=== PATIENT | female | born 1960 | race Caucasian/White ===

== ENCOUNTER 2016-09-09 19:22 | Emergency (ER) | payer OTHER ==
[2016-09-09] MEDS ORDERED: ZOFRAN 4 MG/2 ML IVP STA (19:41)
[2016-09-09] MEDS ORDERED: DILAUDID 1 MG/ML SYRINGE IVP STA ×2 (19:41→21:02)
[2016-09-09 19:56] VITALS: BP 144/94; TEMP 98.5; BMI 27.1
[2016-09-09] MEDS ORDERED: TORADOL IVP STA (20:12)
[2016-09-09] MEDS ORDERED: SILVADENE CREAM TP STA (20:12)
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
== END 2016-09-09 21:44 | disposition home or self-care (01) ==
LOC: ED 19:22
DX: T23.062A Burn of unspecified degree of back of left hand, initial encounter (principal); X11.8XXA Contact with other hot tap-water, initial encounter
CPT/HCPCS: 96374; 96375; 96376; 99283

== ENCOUNTER 2016-09-29 13:00 | Outpatient (RCR) ==
--- NOTE | 2016-09-04 12:57 | RS.OTEVAL ---
Subjective Date of Note: 09/04/16 Visit #: 1 Date of Evaluation: 09/04/16 Payer Source: MEDICARE Date of Onset/Injury/Change in Status: 06/29/16 Surgery Performed?: Yes Date of Procedure: 08/13/16 Treatment Diagnosis: Synovitis, Tenosynovitis, Radial Tunnel Syndrom, L wrist pain Treatment Side (optional): Left *Precautions: Edema of LUE Prior Level of Function.....Patient was independent with: ADL's, Self Care, Work /Vocation, Caregiving, Ambulation/Mobility, Community Integration/Access History of Condition/Mechanism of Injury: Pt does numerous repetitive motions with LUE. Pt mary's, sews, plays guitar. Pt reported she began hurting 06/09 and had to have something done. Level of Function: Pt was independent with all ADLS and driving her car. Pt now has difficulty with ADLS due to pain and throbbing sensation of LUE. Functional Limitations: Sleep, Self Care, ADL's, Reaching, Pushing, Pulling, Lifting, Carrying Current Complaints/Gains: Pt complains of pain in LUE elbow down to her Left hand and fingers. Patient has throbbing sensation in Left hand. Patient has to get in a particular position to get her pain more manageable. Medical History Medical History Comments:: Patient has fibromyalgia, hypothyroidism, Surgical History Comments:: 2 left elbow surgery, right lateral epicondylitis surgery, Radial tunnel syndrome, Smoking Status: Former smoker Diagnostic Testing/Imaging:: Nerve conduction test, X-ray, Hx Home Medications: Topiramate 50 MG, Cymbalta, Gabapentin, Synthroid, Symvastatin, Requip HCL, Estrace Cream, Meloxicam, Hydrocodone. 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 Pain Assessment - Pain Description Pain Description: Burning, Radiating, Sharp, Throbbing, Acute Pain Location: LUE elbow, wrist and hand Pain Description: sharp, burning, throbbing. Current Pain Intensity: 8 Worst Pain Intensity: 10 Other comments regarding pain:: positions affect her pain in the LUE. Functional Outcome Measures UE Functional Index: 14 - G Codes & Severity Modifier G Codes: Carrying, Moving, and handling G8984 current is 77.5% impaired is CL. G8985 Goal is CI 1-19% impaired. Source of G Code score: Carry, Moving, and Handling Observation - Observation Inspection: Scars from surgery on LUE elbow and Left wrist. Posture: Forward Head Handedness: Right Shoulder ROM: Right WFL's Shoulder Muscle Strength: Right WFL's - Left Shoulder ROM Left Shoulder Flexion: 140 (pain begins at 140) Left Shoulder Extension: 55 Left Shoulder Abduction: 90 Left Shoulder Internal Rotation: 80 Left Shoulder External Rotation: 65 Left Shoulder ROM Limitations: Pain - Left Shoulder Strength Left Shoulder Flexion: 3- Fair- Left Shoulder Extension: 2 Poor Left Shoulder Abduction: 3- Fair- Left Shoulder Adduction: 3- Fair- Left Shoulder External Rotation: 3- Fair- Left Shoulder Internal Rotation: 3- Fair- - Right Shoulder Strength Right Shoulder Flexion: 4+ Good + Right Shoulder Extension: 4+ Good + Right Shoulder Abduction: 4+ Good + Right Shoulder Adduction: 4+ Good + Right Shoulder External Rotation: 4+ Good + Right Shoulder Internal Rotation: 4+ Good + - Special Tests Shoulder Drop Arm Test: Negative Left Elbow ROM: Right WFL's Elbow Muscle Strength: Right WFL's - Left Elbow ROM Left Elbow Extension: -16 Left Elbow Flexion: 135 Left Elbow Supination: 70 Left Elbow Pronation: 80 Left Elbow ROM Limitations: Pain - Left Elbow Strength Left Elbow Extension: 3- Fair- Left Elbow Flexion: 3- Fair- Left Forearm Pronation: 3- Fair- Left Forearm Supination: 3- Fair- Wrist ROM: Right WFL's Wrist Muscle Strength: Right WFL's - Left Wrist/Hand ROM Left Wrist Extension: 40 Left Wrist Flexion: 25 Left Wrist Radial Deviation: 5 Left Wrist Ulnar Deviation: 5 Left Forearm Pronation: 80 Left Forearm Supination: 70 Left Wrist ROM Testing Limitations: Pain Appliquer Zigzag Strength Left Hand Appliquer Zigzag Strength: nt Right Hand Appliquer Zigzag Strength: nt Palpation Palpation Findings: Tenderness, Trigger Point, Muscle Guarding Sensation Right Upper Extremity: Intact/Normal Right Lower Extremity: Intact/Normal Left Upper Extremity: Intact/Normal Left Lower Extremity: Intact/Normal Sensation Description: Pain Interventions - Exercise/Activities Exercise/Activities/Manual Therapy: Manual therapy to the LUE shoulder- subscapularis, scapular release, 1st rib manipulation. HOME EXERCISE PROGRAM: Pt instructed to rest and not mary. - Other Treatment/Services Other Services/Treatments: Contrast Bath Treatment Details: Instructed patient and her to complete contrast bath with LUE 2X day. - Objective Findings Objective Findings:: Limited AROM of LUE as well as increased pain. Limitations with carrying objects, and ADLS. - Charges Total Direct Minutes: 85 minutes Total Treatment Time: 45 Procedures billed for this date of service:: Evaluation, Manual therapy x3 Assessment Assessment: Pt has nerve pain in the LUE at the Left elbow region and left wrist and hand. Patient Education: Education of diagnosis, Body/Joint mechanics, Home Exercise Program, Activity Modification, Education of Plan of Care Rehab Potential: Good Problems/Comments: Pt educated regarding giving her LUE a rest. Short Term Goals Goal #1: Patient pain in LUE to decrease to 4/10. Goal to be met by: 09/18/16 Goal #2: Pt LUE elbow extension to increase to -10 degrees. Goal to be met by: 09/18/16 Goal #3: Left wrist flexion to improve to 0-55 degrees. Goal to be met by: 09/18/16 Goal #4: Left wrist extension to increase to 0-60 Goal to be met by: 09/18/16 Mcfp Goals Goal #1: Pt pain in LUE to decrease to 0-2/10. Goal to be met by: 10/02/16 Goal #2: Pt LUE elbow extension to increase to 0-5 degrees. Goal to be met by: 10/02/16 Goal #3: Pt to be independent with Home program. Goal #4: Pt LUE AROM to be WFL and strength to be 4+/5. Plan - Treatment to be provided Procedures: Therapeutic Exercises, Therapeutic Activity, Neuromuscular Rehab, Manual Therapy, Massage, Patient Education Modalities: Electrical Stimulation, Ultrasound/Phonophoresis, Class IV Laser, Cryotherapy - Treatment Plan Frequency: 3 X week Duration: 4 weeks ORDER # VISITS AND/OR THROUGH DATE: 10/10/16
--- NOTE | 2016-09-08 10:09 | RS.OTDNOTE ---
Subjective Date of Note: 09/05/16 Visit #: 2 Date of Evaluation: 09/04/16 Payer Source: MEDICARE Date of Onset/Injury/Change in Status: 06/29/16 Surgery Performed?: Yes Date of Procedure: 08/13/16 Treatment Diagnosis: Synovitis, Tenosynovitis, Radial Tunnel Syndrom, L wrist pain Treatment Side (optional): Left *Precautions: Edema of LUE Prior Level of Function.....Patient was independent with: ADL's, Self Care, Work /Vocation, Caregiving, Ambulation/Mobility, Community Integration/Access History of Condition/Mechanism of Injury: Pt does numerous repetitive motions with LUE. Pt mary's, sews, plays guitar. Pt reported she began hurting 06/09 and had to have something done. Level of Function: Pt was independent with all ADLS and driving her car. Pt now has difficulty with ADLS due to pain and throbbing sensation of LUE. Functional Limitations: Sleep, Self Care, ADL's, Reaching, Pushing, Pulling, Lifting, Carrying Current Complaints/Gains: Pt gives hx of surgery with Dr Campbell. States she is hypersensitve to all touch including clothes, her pet, and through modalities during therapy. States good compliance with rests yesterday following therapy and performing contrast baths. Pain Assessment - Pain Description Pain Description: Burning, Radiating, Sharp, Throbbing, Acute Pain Location: LUE elbow, wrist and hand Pain Description: sharp, burning, throbbing. Current Pain Intensity: 6 Worst Pain Intensity: 10 Modalities - Treatment Modality: Ultrasound Parameters/Method Applied: 1.5w/cm2 x 10 mins to elbow and wrist area. Patient Position: Sitting - Treatment Modality: Class 4 Laser Parameters/Method Applied: Acute pain protocol to elbow and wrist Patient Position: Sitting - Hot Pack/Cryotherapy Treatment: Cryotherapy (x 10 mins following MT/TE prior to class 4 laser with pt ed to perform again x 4 hrs only) Interventions - Exercise/Activities Exercise/Activities/Manual Therapy: Manual therapy (L) wrist and elbow along with PROM and pt ed for home program. HOME EXERCISE PROGRAM: Pt instructed to rest and not mary. - Objective Findings Objective Findings:: Limited AROM of LUE as well as increased pain. Limitations with carrying objects, and ADLS. - Charges Total Direct Minutes: 40 Total Treatment Time: 55 Procedures billed for this date of service:: CP US MT (0 charge laser) Assessment Patient Education: Education of diagnosis, Body/Joint mechanics, Home Exercise Program, Home Safety, Activity Modification, Education of Plan of Care Patient demonstrates compliance with HEP?: Yes Short Term Goals Goal #1: Patient pain in LUE to decrease to 4/10. Goal to be met by: 09/18/16 Progress towards goal: No Change Goal #2: Pt LUE elbow extension to increase to -10 degrees. Goal to be met by: 09/18/16 Progress towards goal: Progressing Goal #3: Left wrist flexion to improve to 0-55 degrees. Goal to be met by: 09/18/16 Progress towards goal: Progressing Goal #4: Left wrist extension to increase to 0-60 Goal to be met by: 09/18/16 Half-Way Goals Goal #1: Pt pain in LUE to decrease to 0-2/10. Goal to be met by: 10/02/16 Progress towards goal: No Change Goal #2: Pt LUE elbow extension to increase to 0-5 degrees. Goal to be met by: 10/02/16 Progress towards goal: Progressing Goal #3: Pt to be independent with Home program. Progress towards goal: Progressing Goal #4: Pt LUE AROM to be WFL and strength to be 4+/5. Plan PLAN OF CARE EXPIRES ON:: 10/10/16 ORDER # VISITS AND/OR THROUGH DATE: 10/10/16 PLAN: Continue Plan of Care Frequency: 3 X week Duration: 4 weeks
--- NOTE | 2016-09-09 08:23 | RS.OTDNOTE ---
Subjective Date of Note: 09/08/16 Visit #: 3 Date of Evaluation: 09/04/16 Payer Source: MEDICARE Date of Onset/Injury/Change in Status: 06/29/16 Surgery Performed?: Yes Date of Procedure: 08/13/16 Treatment Diagnosis: Synovitis, Tenosynovitis, Radial Tunnel Syndrom, L wrist pain Treatment Side (optional): Left *Precautions: Edema of LUE Prior Level of Function.....Patient was independent with: ADL's, Self Care, Work /Vocation, Caregiving, Ambulation/Mobility, Community Integration/Access History of Condition/Mechanism of Injury: Pt does numerous repetitive motions with LUE. Pt mary's, sews, plays guitar. Pt reported she began hurting 06/09 and had to have something done. Level of Function: Pt was independent with all ADLS and driving her car. Pt now has difficulty with ADLS due to pain and throbbing sensation of LUE. Functional Limitations: Sleep, Self Care, ADL's, Reaching, Pushing, Pulling, Lifting, Carrying Current Complaints/Gains: Pt reports increased pain with "shooting stabs, down her arm". Pain Assessment - Pain Description Pain Description: Burning, Radiating, Sharp, Throbbing, Acute Pain Location: LUE elbow, wrist and hand Pain Description: sharp, burning, throbbing. Current Pain Intensity: 8 Worst Pain Intensity: 8 Modalities - Treatment Modality: Ultrasound Parameters/Method Applied: .05w/cm2 x 7 mins each to wrist and elbow Patient Position: Sitting - Hot Pack/Cryotherapy Treatment: Cryotherapy (CP x 10 mins following tx) Interventions - Exercise/Activities Exercise/Activities/Manual Therapy: Manual therapy (L) wrist and elbow along with PROM and pt ed for home program. HOME EXERCISE PROGRAM: Pt instructed to rest and not mary. - Objective Findings Objective Findings:: Limited AROM of LUE as well as increased pain. Limitations with carrying objects, and ADLS. - Charges Total Direct Minutes: 35 Total Treatment Time: 50 Procedures billed for this date of service:: CP US MT Assessment Patient Education: Education of diagnosis, Body/Joint mechanics, Home Exercise Program, Home Safety, Activity Modification, Education of Plan of Care Patient demonstrates compliance with HEP?: Yes Short Term Goals Goal #1: Patient pain in LUE to decrease to 4/10. Goal to be met by: 09/18/16 Progress towards goal: No Change Goal #2: Pt LUE elbow extension to increase to -10 degrees. Goal to be met by: 09/18/16 Progress towards goal: Progressing Goal #3: Left wrist flexion to improve to 0-55 degrees. Goal to be met by: 09/18/16 Progress towards goal: Progressing Goal #4: Left wrist extension to increase to 0-60 Goal to be met by: 09/18/16 Intermediate Goals Goal #1: Pt pain in LUE to decrease to 0-2/10. Goal to be met by: 10/02/16 Progress towards goal: No Change Goal #2: Pt LUE elbow extension to increase to 0-5 degrees. Goal to be met by: 10/02/16 Progress towards goal: Progressing Goal #3: Pt to be independent with Home program. Progress towards goal: Progressing Goal #4: Pt LUE AROM to be WFL and strength to be 4+/5. Plan PLAN OF CARE EXPIRES ON:: 10/10/16 ORDER # VISITS AND/OR THROUGH DATE: 10/10/16 PLAN: Continue Plan of Care Frequency: 3 X week Duration: 3 weeks
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
--- NOTE | 2016-09-24 13:32 | RS.OTCXNS ---
OT Case Note Date of Scheduled Appointment: 09/24/16 Type: No Show (Second no show this wk)
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
--- NOTE | 2016-09-30 15:33 | RS.OTCXNS ---
OT Case Note Date of Scheduled Appointment: 09/30/16 Type: Cancel (Pt in [place] with spouse at MD appointment)
== END 2016-09-30 ==
PROVIDERS: ATTEND Orthopaedic Surgery
DX: M65.9 Synovitis and tenosynovitis, unspecified (principal); M25.532 Pain in left wrist; G56.32 Lesion of radial nerve, left upper limb

== ENCOUNTER 2016-10-27 13:00 | Outpatient (RCR) ==
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
--- NOTE | 2016-10-03 15:28 | RS.OTDNOTE ---
Subjective Date of Note: 10/03/16 Visit #: 6 Date of Evaluation: 09/04/16 Payer Source: Insurance Date of Onset/Injury/Change in Status: 06/29/16 Surgery Performed?: Yes Treatment Diagnosis: Synovitis, Tenosynovitis, Radial Tunnel Syndrom, L wrist pain Treatment Side (optional): Left *Precautions: Edema of LUE Prior Level of Function.....Patient was independent with: ADL's, Self Care, Work /Vocation, Caregiving, Ambulation/Mobility, Community Integration/Access History of Condition/Mechanism of Injury: Pt does numerous repetitive motions with LUE. Pt mary's, sews, plays guitar. Pt reported she began hurting 06/09 and had to have something done. Level of Function: Pt was independent with all ADLS and driving her car. Pt now has difficulty with ADLS due to pain and throbbing sensation of LUE. Functional Limitations: Sleep, Self Care, ADL's, Reaching, Pushing, Pulling, Lifting, Carrying Current Complaints/Gains: Pt pleased with progress. Pain Assessment - Pain Description Pain Description: Burning, Aching Pain Location: LUE elbow, wrist and hand Pain Description: sharp, burning, throbbing. Modalities - Treatment Modality: Ultrasound Parameters/Method Applied: 1.5w/cm2 x 10 mins each elbow and wrist. Patient Position: Sitting - Hot Pack/Cryotherapy Treatment: Hot Pack (x 15 mins) Interventions - Exercise/Activities Exercise/Activities/Manual Therapy: Manual therapy (L) wrist(flexion/extension) and elbow(flexion/extension) along with PROM and pt ed for home program. Yellow /red digi-flex ex, elbow prolonged/static stretch and yellow t-putty ex performed. Pt ed on prolonged wrist and elbow progressive streching program. US to dorsal left hand. HOME EXERCISE PROGRAM: Pt instructed to rest and not mary. Wear splint at night for LUE wrist to keep in extension. Ice Left wrist to keep pain down. - Objective Findings Objective Findings:: PROM-AROM increasing - Charges Total Direct Minutes: 45 Total Treatment Time: 60 Procedures billed for this date of service:: HP US EX MT Assessment Patient Education: Education of diagnosis, Body/Joint mechanics, Home Exercise Program, Home Safety, Activity Modification, Education of Plan of Care Patient demonstrates compliance with HEP?: Yes Short Term Goals Goal #1: Patient pain in LUE to decrease to 2/10. Goal to be met by: 10/15/16 Progress towards goal: Partially Met Goal #2: Pt to increase mass air quality manager to 30#. Goal to be met by: 10/15/16 Progress towards goal: Progressing Goal #3: Left wrist flexion to improve to 0-55 degrees. Goal to be met by: 10/15/16 Progress towards goal: Progressing Goal #4: Left wrist extension to increase to 0-60 Goal to be met by: 10/15/16 Progress towards goal: Progressing Health And Safety Specialist Goals Goal #1: Pt pain in LUE to decrease to 0/10. Goal to be met by: 11/04/16 Progress towards goal: Progressing Goal #2: Pt to increase mass air quality manager to 50# Goal to be met by: 11/04/16 Progress towards goal: Progressing Goal #3: Pt to be independent with Home program. Goal to be met by: 11/04/16 Progress towards goal: Progressing Goal #4: Pt LUE AROM to be WFL and strength to be 4+/5. Goal to be met by: 11/04/16 Plan PLAN OF CARE EXPIRES ON:: 11/04/16 ORDER # VISITS AND/OR THROUGH DATE: 11/04/16 PLAN: Progress Exercises Frequency: 3 X week Duration: 4 weeks
--- NOTE | 2016-10-08 16:42 | RS.OTDNOTE ---
Subjective Date of Note: 10/08/16 Visit #: 8 Date of Evaluation: 09/04/16 Payer Source: Insurance Date of Onset/Injury/Change in Status: 06/29/16 Surgery Performed?: Yes Treatment Diagnosis: Synovitis, Tenosynovitis, Radial Tunnel Syndrom, L wrist pain Treatment Side (optional): Left *Precautions: Edema of LUE Prior Level of Function.....Patient was independent with: ADL's, Self Care, Work /Vocation, Caregiving, Ambulation/Mobility, Community Integration/Access History of Condition/Mechanism of Injury: Pt does numerous repetitive motions with LUE. Pt mary's, sews, plays guitar. Pt reported she began hurting 06/09 and had to have something done. Level of Function: Pt was independent with all ADLS and driving her car. Pt now has difficulty with ADLS due to pain and throbbing sensation of LUE. Functional Limitations: Sleep, Self Care, ADL's, Reaching, Pushing, Pulling, Lifting, Carrying Current Complaints/Gains: Pt complains of aches and weakness of LUE. Pain Assessment - Pain Description Pain Description: Burning, Aching Pain Location: LUE elbow, wrist and hand Pain Description: sharp, burning, throbbing. Current Pain Intensity: 5 Modalities - Treatment Treatment Area: LUE forearm to hand. Patient Position: Sitting - Treatment Patient Position: Sitting - Hot Pack/Cryotherapy Treatment: Hot Pack, Cryotherapy Comments:: to LUE Interventions - Exercise/Activities Exercise/Activities/Manual Therapy: red digi-flex ex, elbow prolonged/static stretch and orange t-putty ex performed. Pt completed mass electronic sensing equipment assembler with 3# x 10 reps, 5# x 10 reps, the rotating of the wire with the LUE. picking up the blue wtd. ball x 5 reps. HOME EXERCISE PROGRAM: Pt instructed to rest and not mary. Wear splint at night for LUE wrist to keep in extension. Ice Left wrist to keep pain down. - Objective Findings Objective Findings:: PROM-AROM increasing - Charges Total Direct Minutes: 60 Total Treatment Time: 60 Procedures billed for this date of service:: HP ,EX x2, CP Assessment Assessment: Pt's average mass electronic sensing equipment assembler is 28# in LUE. Patient Education: Education of diagnosis, Home Exercise Program, Activity Modification, Education of Plan of Care Patient demonstrates compliance with HEP?: Yes Short Term Goals Goal #1: Patient pain in LUE to decrease to 2/10. Goal to be met by: 10/15/16 Progress towards goal: Partially Met Goal #2: Pt to increase mass electronic sensing equipment assembler to 30#. Goal to be met by: 10/15/16 Progress towards goal: Progressing Goal #3: Left wrist flexion to improve to 0-55 degrees. Goal to be met by: 10/15/16 Progress towards goal: Progressing Goal #4: Left wrist extension to increase to 0-60 Goal to be met by: 10/15/16 Progress towards goal: Progressing Hydraulic And Plumbing Installer Goals Goal #1: Pt pain in LUE to decrease to 0/10. Goal to be met by: 11/04/16 Progress towards goal: Progressing Goal #2: Pt to increase mass electronic sensing equipment assembler to 50# Goal to be met by: 11/04/16 Progress towards goal: Progressing Goal #3: Pt to be independent with Home program. Goal to be met by: 11/04/16 Progress towards goal: Progressing Goal #4: Pt LUE AROM to be WFL and strength to be 4+/5. Goal to be met by: 11/04/16 Plan PLAN OF CARE EXPIRES ON:: 11/04/16 ORDER # VISITS AND/OR THROUGH DATE: 11/04/16 PLAN: Continue Plan of Care Frequency: 3 X week Duration: 4 weeks
--- NOTE | 2016-10-09 08:26 | RS.OTDNOTE ---
Subjective Date of Note: 10/06/16 Visit #: 7 Date of Evaluation: 09/04/16 Payer Source: Insurance Date of Onset/Injury/Change in Status: 06/29/16 Surgery Performed?: Yes Treatment Diagnosis: Synovitis, Tenosynovitis, Radial Tunnel Syndrom, L wrist pain Treatment Side (optional): Left *Precautions: Edema of LUE Prior Level of Function.....Patient was independent with: ADL's, Self Care, Work /Vocation, Caregiving, Ambulation/Mobility, Community Integration/Access History of Condition/Mechanism of Injury: Pt does numerous repetitive motions with LUE. Pt mary's, sews, plays guitar. Pt reported she began hurting 06/09 and had to have something done. Level of Function: Pt was independent with all ADLS and driving her car. Pt now has difficulty with ADLS due to pain and throbbing sensation of LUE. Functional Limitations: Sleep, Self Care, ADL's, Reaching, Pushing, Pulling, Lifting, Carrying Current Complaints/Gains: Pt with no new c/o's. Pain Assessment - Pain Description Pain Description: Burning, Aching Pain Location: LUE elbow, wrist and hand Pain Description: sharp, burning, throbbing. Modalities - Treatment Modality: Ultrasound Parameters/Method Applied: 1.5w/cm2 x 10 mins to wrsit and elbow each Patient Position: Sitting - Hot Pack/Cryotherapy Treatment: Hot Pack, Cryotherapy Interventions - Exercise/Activities Exercise/Activities/Manual Therapy: Manual therapy (L) wrist(flexion/extension) and elbow(flexion/extension) along with PROM and pt ed for home program. Yellow /red digi-flex ex, elbow prolonged/static stretch and yellow t-putty ex performed. Pt ed on prolonged wrist and elbow progressive streching program. US to dorsal left wrist HOME EXERCISE PROGRAM: Pt instructed to rest and not mary. Wear splint at night for LUE wrist to keep in extension. Ice Left wrist to keep pain down. - Objective Findings Objective Findings:: PROM-AROM increasing - Charges Total Direct Minutes: 50 Total Treatment Time: 65 Procedures billed for this date of service:: HP US EX MT Assessment Patient Education: Education of diagnosis, Body/Joint mechanics, Home Exercise Program, Home Safety, Activity Modification, Education of Plan of Care Patient demonstrates compliance with HEP?: Yes Short Term Goals Goal #1: Patient pain in LUE to decrease to 2/10. Goal to be met by: 10/15/16 Progress towards goal: Partially Met Goal #2: Pt to increase mass licensed occupational therapist to 30#. Goal to be met by: 10/15/16 Progress towards goal: Progressing Goal #3: Left wrist flexion to improve to 0-55 degrees. Goal to be met by: 10/15/16 Progress towards goal: Progressing Goal #4: Left wrist extension to increase to 0-60 Goal to be met by: 10/15/16 Progress towards goal: Progressing Box Toe Stitcher Goals Goal #1: Pt pain in LUE to decrease to 0/10. Goal to be met by: 11/04/16 Progress towards goal: Progressing Goal #2: Pt to increase mass licensed occupational therapist to 50# Goal to be met by: 11/04/16 Progress towards goal: Progressing Goal #3: Pt to be independent with Home program. Goal to be met by: 11/04/16 Progress towards goal: Progressing Goal #4: Pt LUE AROM to be WFL and strength to be 4+/5. Goal to be met by: 11/04/16 Plan PLAN OF CARE EXPIRES ON:: 11/04/16 ORDER # VISITS AND/OR THROUGH DATE: 11/04/16 PLAN: Continue Plan of Care Frequency: 3 X week Duration: 3 weeks
--- NOTE | 2016-10-10 14:31 | RS.OTDNOTE ---
Subjective Date of Note: 10/10/16 Visit #: 9 Date of Evaluation: 09/04/16 Payer Source: Insurance Date of Onset/Injury/Change in Status: 06/29/16 Surgery Performed?: Yes Treatment Diagnosis: Synovitis, Tenosynovitis, Radial Tunnel Syndrom, L wrist pain Treatment Side (optional): Left *Precautions: Edema of LUE Prior Level of Function.....Patient was independent with: ADL's, Self Care, Work /Vocation, Caregiving, Ambulation/Mobility, Community Integration/Access History of Condition/Mechanism of Injury: Pt does numerous repetitive motions with LUE. Pt mary's, sews, plays guitar. Pt reported she began hurting 06/09 and had to have something done. Level of Function: Pt was independent with all ADLS and driving her car. Pt now has difficulty with ADLS due to pain and throbbing sensation of LUE. Functional Limitations: Sleep, Self Care, ADL's, Reaching, Pushing, Pulling, Lifting, Carrying Current Complaints/Gains: Pt states no US performed on last tx this wk and pain has increased in wrist and elbow. Pain Assessment - Pain Description Pain Description: Burning, Aching Pain Location: LUE elbow, wrist and hand Pain Description: sharp, burning, throbbing. Modalities - Treatment Modality: Ultrasound Parameters/Method Applied: 1.5w/cm2 x 7 mins each to wrist and elbow - Hot Pack/Cryotherapy Treatment: Hot Pack, Cryotherapy Interventions - Exercise/Activities Exercise/Activities/Manual Therapy: Manual therapy (L) wrist(flexion/extension) and elbow(flexion/extension) along with PROM and pt ed for home program. Yellow /red digi-flex ex, elbow prolonged/static stretch and yellow t-putty ex performed. Pt ed on prolonged wrist and elbow progressive streching program. US to dorsal left wrist and elbow. Wrsit roll-up and wire wrist ex performed. HOME EXERCISE PROGRAM: Pt instructed to rest and not mary. Wear splint at night for LUE wrist to keep in extension. Ice Left wrist to keep pain down. - Objective Findings Objective Findings:: PROM-AROM increasing - Charges Total Direct Minutes: 45 Total Treatment Time: 60 Procedures billed for this date of service:: HP US EX2 Assessment Patient Education: Education of diagnosis, Body/Joint mechanics, Home Exercise Program, Home Safety, Activity Modification, Education of Plan of Care Patient demonstrates compliance with HEP?: Yes Short Term Goals Goal #1: Patient pain in LUE to decrease to 2/10. Goal to be met by: 10/15/16 Progress towards goal: Partially Met Goal #2: Pt to increase mass laborer fryer farm to 30#. Goal to be met by: 10/15/16 Progress towards goal: Met Comments: 28# 31# 30# Goal #3: Left wrist flexion to improve to 0-55 degrees. Goal to be met by: 10/15/16 Progress towards goal: Partially Met Goal #4: Left wrist extension to increase to 0-60 Goal to be met by: 10/15/16 Progress towards goal: Progressing Fpc Goals Goal #1: Pt pain in LUE to decrease to 0/10. Goal to be met by: 11/04/16 Progress towards goal: Progressing Goal #2: Pt to increase mass laborer fryer farm to 50# Goal to be met by: 11/04/16 Progress towards goal: Progressing Goal #3: Pt to be independent with Home program. Goal to be met by: 11/04/16 Progress towards goal: Progressing Goal #4: Pt LUE AROM to be WFL and strength to be 4+/5. Goal to be met by: 11/04/16 Plan PLAN OF CARE EXPIRES ON:: 11/04/16 ORDER # VISITS AND/OR THROUGH DATE: 11/04/16 PLAN: Continue Plan of Care Frequency: 3 X week Duration: 2 weeks
--- NOTE | 2016-10-13 13:55 | RS.OTDNOTE ---
Subjective Date of Note: 10/13/16 Visit #: 10 Date of Evaluation: 09/04/16 Payer Source: Insurance Date of Onset/Injury/Change in Status: 06/29/16 Surgery Performed?: Yes Treatment Diagnosis: Synovitis, Tenosynovitis, Radial Tunnel Syndrom, L wrist pain Treatment Side (optional): Left *Precautions: Edema of LUE Prior Level of Function.....Patient was independent with: ADL's, Self Care, Work /Vocation, Caregiving, Ambulation/Mobility, Community Integration/Access History of Condition/Mechanism of Injury: Pt does numerous repetitive motions with LUE. Pt mary's, sews, plays guitar. Pt reported she began hurting 06/09 and had to have something done. Level of Function: Pt was independent with all ADLS and driving her car. Pt now has difficulty with ADLS due to pain and throbbing sensation of LUE. Functional Limitations: Sleep, Self Care, ADL's, Reaching, Pushing, Pulling, Lifting, Carrying Current Complaints/Gains: Pt states she was able to open 2 jars yesterday while cooking. States pain in anterior/posterior area of UE while driving. States overall improvement with fx use and strength per UE fx scale. Pain Assessment - Pain Description Pain Description: Burning, Aching Pain Location: LUE elbow, wrist and hand Pain Description: sharp, burning, throbbing. Current Pain Intensity: 5 Worst Pain Intensity: 5 Modalities - Hot Pack/Cryotherapy Treatment: Hot Pack, Cryotherapy Interventions - Exercise/Activities Exercise/Activities/Manual Therapy: Manual therapy (L) wrist(flexion/extension) and elbow(flexion/extension) along with PROM and pt ed for home program. Red/ green digi-flex/pins/and t-putty ex. elbow prolonged/static stretch. Pt ed on prolonged wrist and elbow progressive streching program and performed wrist flexion/extension with 3# hand weight and wrist roll up ex with 11/2# weight x 2 each. HOME EXERCISE PROGRAM: Pt instructed to rest and not mary. Wear splint at night for LUE wrist to keep in extension. Ice Left wrist to keep pain down. - Objective Findings Objective Findings:: PROM-AROM increasing - Charges Total Direct Minutes: 40 Total Treatment Time: 65 Procedures billed for this date of service:: HP/CP EX2 Assessment Patient Education: Education of diagnosis, Body/Joint mechanics, Home Exercise Program, Home Safety, Activity Modification, Education of Plan of Care Patient demonstrates compliance with HEP?: Yes Short Term Goals Goal #1: Patient pain in LUE to decrease to 2/10. Goal to be met by: 10/15/16 Progress towards goal: Partially Met Goal #2: Pt to increase mass adult basic education instructor to 30#. Goal to be met by: 10/15/16 Progress towards goal: Met Goal #3: Left wrist flexion to improve to 0-55 degrees. Goal to be met by: 10/15/16 Progress towards goal: Met Goal #4: Left wrist extension to increase to 0-60 Goal to be met by: 10/15/16 Progress towards goal: Progressing Privacy Compliance Manager Goals Goal #1: Pt pain in LUE to decrease to 0/10. Goal to be met by: 11/04/16 Progress towards goal: Progressing Goal #2: Pt to increase mass adult basic education instructor to 50# Goal to be met by: 11/04/16 Progress towards goal: Progressing Goal #3: Pt to be independent with Home program. Goal to be met by: 11/04/16 Progress towards goal: Partially Met Goal #4: Pt LUE AROM to be WFL and strength to be 4+/5. Goal to be met by: 11/04/16 Plan PLAN OF CARE EXPIRES ON:: 11/04/16 ORDER # VISITS AND/OR THROUGH DATE: 11/04/16 PLAN: Continue Plan of Care Frequency: 3 X week Duration: 1 week
--- NOTE | 2016-10-17 08:16 | RS.OTDNOTE ---
Subjective Date of Note: 10/16/16 Visit #: 11 Date of Evaluation: 09/04/16 Payer Source: Insurance Date of Onset/Injury/Change in Status: 06/29/16 Surgery Performed?: Yes Treatment Diagnosis: Synovitis, Tenosynovitis, Radial Tunnel Syndrom, L wrist pain Treatment Side (optional): Left *Precautions: Edema of LUE Prior Level of Function.....Patient was independent with: ADL's, Self Care, Work /Vocation, Caregiving, Ambulation/Mobility, Community Integration/Access History of Condition/Mechanism of Injury: Pt does numerous repetitive motions with LUE. Pt mary's, sews, plays guitar. Pt reported she began hurting 06/09 and had to have something done. Level of Function: Pt was independent with all ADLS and driving her car. Pt now has difficulty with ADLS due to pain and throbbing sensation of LUE. Functional Limitations: Sleep, Self Care, ADL's, Reaching, Pushing, Pulling, Lifting, Carrying Current Complaints/Gains: Pt states increased c/o wrist pain that has been worsening over the past few days. States she has been playing guitar and min amout of crocheting. States applying CP has always helped until now and that HP helps more now. Pain Assessment - Pain Description Pain Description: Burning, Aching Pain Location: LUE elbow, wrist and hand Pain Description: sharp, burning, throbbing. Modalities - Treatment Modality: Ultrasound Parameters/Method Applied: 1.5w/cm2 x 10 mins to dorsal wrist Treatment Area: wrsit Patient Position: Sitting Interventions - Exercise/Activities Exercise/Activities/Manual Therapy: Wrist ex performed along with min amount of TE with light weight resistence. Pt ed on HEP and donning wrist cock up splint for night use. HOME EXERCISE PROGRAM: Pt instructed to rest and not mary. Wear splint at night for LUE wrist to keep in extension. Ice Left wrist to keep pain down. - Other Treatment/Services Other Services/Treatments: Paraffin - Objective Findings Objective Findings:: PROM-AROM increasing - Charges Total Direct Minutes: 45 Total Treatment Time: 45 Procedures billed for this date of service:: Paraffin us ex Assessment Patient Education: Education of diagnosis, Body/Joint mechanics, Home Exercise Program, Home Safety, Activity Modification, Education of Plan of Care Patient demonstrates compliance with HEP?: Yes Short Term Goals Goal #1: Patient pain in LUE to decrease to 2/10. Goal to be met by: 10/15/16 Progress towards goal: Partially Met Goal #2: Pt to increase mass laborer laboratory to 30#. Goal to be met by: 10/15/16 Progress towards goal: Met Goal #3: Left wrist flexion to improve to 0-55 degrees. Goal to be met by: 10/15/16 Progress towards goal: Met Goal #4: Left wrist extension to increase to 0-60 Goal to be met by: 10/15/16 Progress towards goal: Progressing Library Clerk Talking Books Goals Goal #1: Pt pain in LUE to decrease to 0/10. Goal to be met by: 11/04/16 Progress towards goal: Progressing Goal #2: Pt to increase mass laborer laboratory to 50# Goal to be met by: 11/04/16 Progress towards goal: Progressing Goal #3: Pt to be independent with Home program. Goal to be met by: 11/04/16 Progress towards goal: Partially Met Goal #4: Pt LUE AROM to be WFL and strength to be 4+/5. Goal to be met by: 11/04/16 Plan PLAN OF CARE EXPIRES ON:: 11/04/16 ORDER # VISITS AND/OR THROUGH DATE: 11/04/16 PLAN: Continue Plan of Care Frequency: 1 X week Duration: 1 week
--- NOTE | 2016-11-06 08:47 | RS.OTPN ---
Subjective Date of Note: 11/10/16 Visit #: 10 Date of Evaluation: 09/04/16 Payer Source: Insurance Date of Onset/Injury/Change in Status: 06/29/16 Surgery Performed?: Yes Treatment Diagnosis: Synovitis, Tenosynovitis, Radial Tunnel Syndrom, L wrist pain Treatment Side (optional): Left *Precautions: Edema of LUE Prior Level of Function.....Patient was independent with: ADL's, Self Care, Work /Vocation, Caregiving, Ambulation/Mobility, Community Integration/Access History of Condition/Mechanism of Injury: Pt does numerous repetitive motions with LUE. Pt mary's, sews, plays guitar. Pt reported she began hurting 06/09 and had to have something done. Level of Function: Pt was independent with all ADLS and driving her car. Pt now has difficulty with ADLS due to pain and throbbing sensation of LUE. Functional Limitations: Sleep, Self Care, ADL's, Reaching, Pushing, Pulling, Lifting, Carrying Current Complaints/Gains: Pain and weakness of LUE. Pain Assessment - Pain Description Pain Description: Burning, Aching Pain Location: LUE elbow, wrist and hand Pain Description: sharp, burning, throbbing. Current Pain Intensity: 3 Functional Outcome Measures UE Functional Index: 35 - G Codes & Severity Modifier G Codes: CMH Current CJ, Hall is CI Source of G Code score: Carrying, Moving, and Handling. Observation - Observation Posture: Normal Handedness: Right Shoulder ROM: Left WFL's Wrist Muscle Strength: Left WFL's Palpation Palpation Findings: Tenderness Sensation Right Upper Extremity: Intact/Normal Right Lower Extremity: Intact/Normal Left Upper Extremity: Intact/Normal Left Lower Extremity: Intact/Normal Comments: Pt continues with hypersensitivity of dorsal LUE hand. Interventions - Exercise/Activities Exercise/Activities/Manual Therapy: Wrist ex performed along with min amount of TE with light weight resistence. Pt ed on HEP and donning wrist cock up splint for night use. HOME EXERCISE PROGRAM: Pt instructed to rest and not mary. Wear splint at night for LUE wrist to keep in extension. Ice Left wrist to keep pain down. - Objective Findings Objective Findings:: PROM-AROM increasing - Charges Total Direct Minutes: 0 Total Treatment Time: 0 Procedures billed for this date of service:: 0 Assessment Assessment: Patient AROM is WFL. Patient Education: Education of diagnosis, Home Exercise Program, Education of Plan of Care Rehab Potential: Good Short Term Goals Goal #1: Patient pain in LUE to decrease to 2/10. Goal to be met by: 10/15/16 Progress towards goal: Met Goal #2: Pt to increase mass editor & co founder to 30#. Goal to be met by: 10/15/16 Progress towards goal: Met Goal #3: Left wrist flexion to improve to 0-55 degrees. Goal to be met by: 10/15/16 Progress towards goal: Met Goal #4: Left wrist extension to increase to 0-60 Goal to be met by: 10/15/16 Progress towards goal: Progressing Halfway Goals Goal #1: Pt pain in LUE to decrease to 0/10. Goal to be met by: 11/04/16 Progress towards goal: Progressing Goal #2: Pt to increase mass editor & co founder to 50# Goal to be met by: 11/04/16 Progress towards goal: Progressing Goal #3: Pt to be independent with Home program. Goal to be met by: 11/04/16 Progress towards goal: Partially Met Goal #4: Pt LUE AROM to be WFL and strength to be 4+/5. Goal to be met by: 11/04/16 Plan PLAN OF CARE EXPIRES ON:: 11/04/16 ORDER # VISITS AND/OR THROUGH DATE: 11/04/16 PLAN: Continue Plan of Care Frequency: 2 X week Duration: 2 weeks
== END 2016-10-28 ==
PROVIDERS: ATTEND Orthopaedic Surgery
DX: M65.9 Synovitis and tenosynovitis, unspecified (principal); M25.532 Pain in left wrist; G56.32 Lesion of radial nerve, left upper limb

== ENCOUNTER 2016-11-09 19:07 | Emergency (ER) | payer OTHER ==
[2016-11-09] MEDS ORDERED: SODIUM CHLORIDE 1,000 ML IV STA ×2 (19:09)
[2016-11-09] MEDS ORDERED: DILAUDID 1 MG/ML SYRINGE IVP STA (19:10)
[2016-11-09] MEDS ORDERED: ZOFRAN 4 MG/2 ML IVP STA (19:10)
[2016-11-09 19:16] VITALS: BP 131/74; TEMP 99.5; BMI 26.6
[2016-11-09 19:45] LABS: BASOPHILS % (AUTO) 0.3 % (0.0-3.0); EOSINOPHILS # (AUTO) 0.1 K/ul (0.0-0.7); EOSINOPHILS % (AUTO) 0.7 % (0.0-7.0); HEMATOCRIT 44.6 % (37.0-47.0); HEMOGLOBIN 14.8 g/dl (12.0-16.0); IMMATURE GRANULOCYTE % (AUTO) 0.2 % (0.0-5.0); LYMPHOCYTES # (AUTO) 0.7 K/uL (0.60-3.4); LYMPHOCYTES % (AUTO) 7.7 (10.0-50.0); MEAN CORPUSCULAR HGB CONC 33.2 (31.8-35.4); MEAN CORPUSCULAR VOLUME 87.5 fl (81.0-99.0); MONOCYTES # (AUTO) 0.4 K/uL (0.4-2.0); MONOCYTES % (AUTO) 4.3 (0-10); NEUTROPHILS # (AUTO) 7.5 K/ul (2.0-6.9); NEUTROPHILS % (AUTO) 86.8; PLATELET COUNT 224 10^3/uL (140-440)
[2016-11-09 19:46] LABS: BILIRUBIN,URINE Negative (NEGATIVE); KETONES,URINE Negative (NEGATIVE); LEUKOCYTE ESTERASE ,URINE Negative (NEGATIVE); NITRITE,URINE Negative (NEGATIVE); PH,URINE 6.5 (5-9); PROTEIN,URINE Negative (NEGATIVE); URINE, BLOOD Negative (NEGATIVE)
[2016-11-09 19:49] LABS: ADD URINE MICROSCOPIC NO
[2016-11-09 20:02] LABS: FLU INTERNAL QC INTERNAL QC VALID; RAPID FLU A NEGATIVE (NEGATIVE); RAPID FLU B NEGATIVE (NEGATIVE)
[2016-11-09 20:12] LABS: ALANINE AMINOTRANSFERASE 30 U/L (12-78); ALBUMIN 3.7 g/dL (3.4-5.0); ALBUMIN/GLOBULIN RATIO 1.12; ALKALINE PHOSPHATASE 73 U/L (42-98); AMYLASE 27 U/L (25-115); ANION GAP 15.5; ASPARTATE AMINO TRANSFERASE 18 U/L (15-37); BILIRUBIN,TOTAL 0.64 mg/dL (0.00-1.20); BLOOD UREA NITROGEN 14 mg/dL (7-18); BUN/CREATININE RATIO 19.44; CALCIUM 8.8 mg/dL (8.2-10.2); CARBON DIOXIDE 20 mmol/L (21-32); CHLORIDE 108 mmol/L (98-107); CREATINE KINASE 41 U/L; CREATININE 0.72 mg/dL (0.60-1.30); GLUCOSE 113 mg/dL (70-110); POTASSIUM 3.5 mmol/L (3.5-5.10); SODIUM 140 mmol/L (136-145)
[2016-11-09 20:13] LABS: LIPASE 5 U/L (8-78)
[2016-11-09 20:18] LABS: ERYTHROCYTE SEDIMENTATION RATE 18 mm/hr (0-20); ESR INTERNAL QC INTERNAL QC VALID
--- NOTE | 2016-11-09 20:50 | CT ---
Exam: CT scan of the abdomen pelvis without contrast. Date: 11/09/2016. Comparison: 02/07/2014. HISTORY: Multiple episodes of vomiting. TECHNIQUE: Helical scan of the abdomen pelvis was performed without contrast. FINDINGS: Lung bases are clear. Minor multilevel degenerative changes present throughout the lumba r spine. No lytic or blastic lesions are present. The spleen and liver have a uniform attenuation. The gallbladder, stomach, pancreas and adrenal gla nds are normal. The kidneys have a normal morphology. There is redemonstration of a 0.1 cm nonobst ructing calculus in the lower pole left kidney. No retroperitoneal adenopathy is present. Aorta walters s peripheral calcification and does not exceed 3 cm. The small bowel and appendix are normal. The colon, pelvic sidewall and bladder are normal. There is no free pelvic fluid. Hysterectomy has bee n performed. The rectum inguinal regions are normal. Impression: No acute findings in the abdomen or pelvis. Hysterectomy. Scattered ASVD. 0.1-cm nonobstructing calculus in the lower pole left kidney.
--- NOTE | 2016-11-09 21:05 | ED.PDOC ---
General ED Provider: Dr. SMITHA TRINH-ER Chief Complaint: Nausea/Vomiting Stated Complaint: evelyn got vomiting and diarrhea Time Seen by Physician: 19:10 Mode of Arrival: Walk-In Information Source: Patient Exam Limitations: No limitations Primary Care Provider: SMITHA TRINH Nursing and Triage Documentation Reviewed and Agree: Yes GI Complaint Exam - Abdominal Pain Complaint/Exam Onset: Gradual Duration: several hours Symptoms Are: Still present Timing: Constant Initial Severity: Mild Current Severity: Mild Location of Pain: Diffuse Character: Reports: Dull, Aching Aggravating: Reports: None Alleviating: Reports: Vomiting Associated Signs and Symptoms: Reports: Decreased appetite, Nausea, Vomiting. Denies: Diaphoresis, Fever, Cough, Chest pain, Dizziness, Back pain, Constipation, Blood in stool, Dysuria, Urinary frequency, Decreased urine output , Vaginal bleeding, Vaginal discharge, Diarrhea, Sore throat, Decreased activity AAA Risk Factors: Reports: None Patient Rh Status: Unknown Abdominal Findings: Present: None Quality Indicator For Non-Traumatic Chest Pain/Syncope: EKG Performed Review of Systems - Review Of Systems Constitutional: Reports: No symptoms Eyes: Reports: No symptoms Ears, Nose, Mouth, Throat: Reports: No symptoms Respiratory: Reports: No symptoms Cardiac: Reports: No symptoms GI: Reports: Abdominal pain, Diarrhea, Nausea, Vomiting : Reports: No symptoms Musculoskeletal: Reports: No symptoms Skin: Reports: No symptoms Neurological: Reports: No symptoms Endocrine: Reports: No symptoms Hematologic/Lymphatic: Reports: No symptoms All Other Systems: Reviewed and Negative Past Medical History - Past Medical History Previously Healthy: Yes Endocrine: Reports: None Cardiovascular: Reports: None Respiratory: Reports: None Hematological: Reports: None Gastrointestinal: Reports: None Genitourinary: Reports: None Neuro/Psych: Reports: Migraine, Other Musculoskeletal: Reports: None Cancer: Reports: None Last Menstrual Period: PT HAS HAD A HYSTERECTOMY - Surgical History General Surgical History: Reports: None - Family History Family History: Reports: Unknown - Social History Smoking Status: Former smoker Hx Substance Use: No Alcohol Screening: None Lives: With family - Immunizations Tetanus Shot up to Date: Yes (UNKNOWN) Physical Exam - Physical Exam Appearance: Well-appearing, No pain distress, Well-nourished Pain Distress: Mild Eyes: HAZEL, EOMI, Conjunctiva clear ENT: Ears normal, Nose normal, Oropharynx normal Neck: Supple Respiratory: Airway patent Cardiovascular: RRR GI/: Soft Musculoskeletal: Normal strength, ROM intact, No edema, No calf tenderness Skin: Warm, Dry, Normal color Neurological: Sensation intact, Motor intact, Reflexes intact, Cranial nerves intact, Alert, Oriented Psychiatric: Affect appropriate, Mood appropriate Interpretation - Radiology Interpretation Radiology Interpretation By: Radiologist Radiology Results: Negative Exam Interpreted: CT Scan - EKG Interpretation Time of EKG #1: 21:04 Rate: Tachy Rhythm: Sinus Ectopy: None Randolph: NL ST Segment: Normal Re-Evaluation - Re-Evaluation Time of Re-Evaluation: 21:04 Status: Improved (no nausea or abd painor diarrhea) Vital Signs Stable: Yes Pain Level: 0 Appearance: NAD Lungs: Clear Skin: Warm and Dry Neuro: Alert and Oriented X3 CV: RRR Critical Care Note - Critical Care Note Total Time (mins): 0 Course - Course Hematology/Chemistry: 11/09/16 19:40 11/09/16 19:40 Orders, Labs, Meds: Lab Review 11/09/16 19:40 WBC 8.60 RBC 5.10 Hgb 14.8 Hct 44.6 MCV 87.5 MCH 29.0 MCHC 33.2 RDW Coeff of Katherine 12.9 Plt Count 224 Immature Gran % (Auto) 0.2 Neut % (Auto) 86.8 Lymph % (Auto) 7.7 L Hayes % (Auto) 4.3 Eos % (Auto) 0.7 Baso % (Auto) 0.3 Immature Gran # (Auto) 0.0 Neut # 7.5 H Lymph # 0.7 Hayes # 0.4 Eos # 0.1 Baso # 0.0 ESR 18 Sodium 140 Potassium 3.5 Chloride 108 H Carbon Dioxide 20 L Anion Gap 15.5 BUN 14 Creatinine 0.72 Estimated GFR (MDRD) 84.00 BUN/Creatinine Ratio 19.44 Glucose 113 H Calcium 8.8 Total Bilirubin 0.64 AST 18 ALT 30 Alkaline Phosphatase 73 Total Creatine Kinase 41 Troponin I < 0.0100 Total Protein 7.0 Albumin 3.7 Globulin 3.3 Albumin/Globulin Ratio 1.12 Amylase 27 Lipase 5 L Urine Color Yellow Urine Clarity Clear Urine pH 6.5 Ur Specific Java 1.015 Urine Protein Negative Urine Glucose (UA) Negative Urine Ketones Negative Urine Blood Negative Urine Nitrite Negative Urine Bilirubin Negative Urine Urobilinogen 1.0 Ur Leukocyte Esterase Negative Influenza A (Rapid) Negative Influenza B (Rapid) Negative Orders Category Date Time Status EKG-(ED ONLY) Stat CARDIO 11/09/16 19:08 Ordered Impregnating Helper [ED FICTION WRITER APPLIED] .ONCE EMERGENCY 11/09/16 19:49 Active IV [ED IV/MEDIPORT/POWERPORT] .ONCE EMERGENCY 11/09/16 19:09 Active AMYLASE Stat LAB 11/09/16 19:40 Completed CBC W/ AUTO DIFF Stat LAB 11/09/16 19:40 Completed COMPREHENSIVE METABOLIC PANEL Stat LAB 11/09/16 19:40 Completed CREATINE KINASE Stat LAB 11/09/16 19:40 Completed ESR Stat LAB 11/09/16 19:40 Completed LIPASE Stat LAB 11/09/16 19:40 Completed MOLECULAR GROUP A STREP Stat LAB 11/09/16 19:20 Results RAPID FLU A/B Stat LAB 11/09/16 19:40 Completed STREP SCREEN Stat LAB 11/09/16 19:20 Results TROPONIN I Stat LAB 11/09/16 19:40 Completed URINALYSIS C & S IF INDICATED Stat LAB 11/09/16 19:40 Completed 0.9 % Sodium Chloride [Saline Flush] MEDS 11/09/16 19:09 Ordered 1 syr IVF PRN PRN Hydromorphone HCl [Dilaudid 1 mg/ml Syringe] MEDS 11/09/16 19:10 Discontinued 1 mg IVP ONCE STA Ondansetron HCl/Pf [Zofran 4 mg/2 ml] MEDS 11/09/16 19:10 Discontinued 8 mg IVP ONCE STA Sodium Chloride 0.9% [Sodium Chloride] 1,000 ml MEDS 11/09/16 19:09 Discontinued IV BOLUS Sodium Chloride 0.9% [Sodium Chloride] 1,000 ml MEDS 11/09/16 19:[address] ABDOMEN/PELVIS WO CONTRAST Stat RADS 11/09/16 19:10 Completed Medications Generic Name Dose Route Start Last Admin Trade Name Freq PRN Reason Stop Dose Admin Sodium Chloride 1 syr 11/09/16 19:09 11/09/16 19:58 Saline Flush IVF 1 syr PRN PRN Administration To flush IV Discontinued Medications Generic Name Dose Route Start Last Admin Trade Name Freq PRN Reason Stop Dose Admin Hydromorphone HCl 1 mg 11/09/16 19:10 11/09/16 19:50 Dilaudid 1 Mg/Ml Syringe IVP 11/09/16 19:11 1 mg ONCE STA Administration Sodium Chloride 1,000 mls @ 1,000 mls/hr 11/09/16 19:09 11/09/16 19:42 Sodium Chloride IV 11/09/16 20:08 1,000 mls/hr BOLUS STA Administration Sodium Chloride 1,000 mls @ 1,000 mls/hr 11/09/16 19:09 11/09/16 19:56 Sodium Chloride IV 11/09/16 20:08 1,000 mls/hr BOLUS STA Administration Ondansetron HCl 8 mg 11/09/16 19:10 11/09/16 19:44 Zofran 4 Mg/2 Ml IVP 11/09/16 19:11 8 mg ONCE STA Administration Vital Signs: Temp Pulse Resp BP Pulse Ox 11/09/16 19:09 99.5 F 131 H 24 131/74 97 Departure - Departure Time of Disposition: 21:05 Disposition: HOME SELF-CARE Discharge Problem: Enteritis Instructions: Enteritis (ED) Condition: Good Pt referred to PMD for follow-up: Yes Additional Instructions: zofran 4mg q 4hrs prn #4--clear liquds--recheck in 36hs if not improving Allergies/Adverse Reactions: Allergies butorphanol tartrate [From Stadol] Adverse Reaction (Verified 11/09/16 19:16) codeine Adverse Reaction (Verified 11/09/16 19:16) prochlorperazine edisylate [From Compazine] Adverse Reaction (Verified 11/09/16 19:16) prochlorperazine maleate [From Compazine] Adverse Reaction (Verified 11/09/16 19 :16) Home Medications: Ambulatory Orders Ropinirole HCl [Requip] 2 mg PO BEDTIME 02/07/14 Topiramate [Topamax] 75 mg PO BID 02/07/14 Duloxetine HCl [Cymbalta] 90 mg PO DAILY 02/25/16 Gabapentin 300 mg PO TID 02/25/16 Levothyroxine Sodium [Synthroid] 50 mcg PO DAILY 02/25/16 Estradiol [Estrace] 42.5 gm VG 2 TIMES PER WEEK 09/09/16 Hydrocodone/Acetaminophen [Hydrocodon-Acetaminoph 7.5-325] 1 tab PO TID PRN 06/16 Lorazepam 0.5 mg PO DIRECTED PRN 09/09/16 Meloxicam 15 mg PO DAILY 09/09/16 Oxycodone-Acetaminophe 7.5-325 [Percocet 7.5-325] 1 tab PO Q6H PRN #25 tablet Simvastatin 20 mg PO DAILY 09/09/16 Disposition Discussed With: Patient, Family
== END 2016-11-09 21:16 | disposition home or self-care (01) ==
LOC: ED 19:07
DX: K52.9 Noninfective gastroenteritis and colitis, unspecified (principal)
CPT/HCPCS: 36415; 80053; 81001; 82150; 82550; 83690; 84484; 85025; 85651; 87651; 87804; 87880; 93005; 93010; 96361; 96374; 96375; 99283

== ENCOUNTER 2016-12-25 09:47 | Outpatient (CLI) ==
--- NOTE | 2016-12-25 10:36 | DI ---
EXAM: The paranasal sinuses. [place] HISTORY: Sinus pain COMPARISON: None FINDINGS: Paranasal sinuses grossly clear without fluid level. No fracture identified. No focal s oft tissue abnormality. IMPERSSION: Paranasal sinuses grossly clear.
== END 2016-12-25 09:48 | disposition home or self-care (01) ==
LOC: RAD 09:47
PROVIDERS: ATTEND Family Medicine
DX: J32.9 Chronic sinusitis, unspecified (principal)

== ENCOUNTER 2017-01-03 20:27 | Emergency (ER) ==
[2017-01-03 20:34] VITALS: BP 130/75; TEMP 98.5; BMI 26.2
--- NOTE | 2017-01-03 20:41 | ED.PDOC ---
General ED Provider: Dr. JOSE MORSE Chief Complaint: Eye Problem Stated Complaint: Patient is a 56 year old female who comes to ER with c/o left eye infection.She states that it has been matting with yellow drainage, itching, and painful she has now notice it spreading to right eye. Time Seen by Physician: 20:39 Mode of Arrival: Walk-In Information Source: Patient Exam Limitations: No limitations Primary Care Provider: SMITHA TRINH Nursing and Triage Documentation Reviewed and Agree: Yes EENT Complaint Exam - Eye Complaint/Exam Onset/Duration: 2 days Symptoms Are: Still present Timing: Constant Initial Severity: Moderate Location: Bilateral Character: Reports: Foreign body sensation Aggravating: Reports: Light Alleviating: Reports: Eye drops Associated Signs and Symptoms: Reports: Photophobia, Clear drainage Related History: Reports: Environmental. Denies: Similar episode, Foreign body , Trauma, Glaucoma Eye Surgical History: Reports: None Penetrating Injury Risk Factors: None Globe Rupture Risk Factors: None Acute Glaucoma Risk Factors: None Optic Artery Occlusion Risk Factors: None Visual Field: Normal Extraocular Movement: Normal Orbit Findings: Normal Globe Findings: Intact Lid Findings: Normal Conjunctival Findings: Red (very mild ) Corneal Findings: Clear Slit Lamp Used: No Differential Diagnoses: Conjunctivitis Review of Systems - Review Of Systems Constitutional: Reports: No symptoms Eyes: Reports: Drainage, Pain Ears, Nose, Mouth, Throat: Reports: No symptoms Respiratory: Reports: No symptoms Cardiac: Reports: No symptoms GI: Reports: No symptoms : Reports: No symptoms Musculoskeletal: Reports: No symptoms Skin: Reports: No symptoms Neurological: Reports: No symptoms Endocrine: Reports: No symptoms Hematologic/Lymphatic: Reports: No symptoms All Other Systems: Reviewed and Negative Past Medical History - Past Medical History Previously Healthy: Yes Endocrine: Reports: Hypothyroid, Dyslipidemia Cardiovascular: Reports: None Respiratory: Reports: None Hematological: Reports: None Gastrointestinal: Reports: GERD Genitourinary: Reports: None Neuro/Psych: Reports: Migraine, Other Musculoskeletal: Reports: None Cancer: Reports: None Last Menstrual Period: 1994 Other Pertinent Past Medical History: Fibromyalgia - Surgical History General Surgical History: Reports: Hysterectomy (1994), , Orthopedic ( left forearm surgery, right elbow surgery ), Back Surgery (L5 S1 disk removal. ) - Family History Family History: Reports: Unknown - Social History Smoking Status: Former smoker Hx Substance Use: No Alcohol Screening: None - Immunizations Tetanus Shot up to Date: No (unsure) Physical Exam - Physical Exam Appearance: Ill-appearing Ill-appearing: Mild Pain Distress: Mild Eyes: Conjunctiva inflammed ENT: Oropharynx normal Neck: Supple Respiratory: Respirations nonlabored GI/: Nontender, No masses Musculoskeletal: Normal strength, ROM intact, No edema, No calf tenderness Skin: Warm, Dry, Normal color Neurological: Motor intact, Alert, Oriented Psychiatric: Anxious Critical Care Note - Critical Care Note Total Time (mins): 0 Course - Course Vital Signs: Temp Pulse Resp BP Pulse Ox 01/03/17 20:28 98.5 F 92 H 20 130/75 96 Departure - Departure Time of Disposition: 21:27 Disposition: HOME SELF-CARE Discharge Problem: Chemical conjunctivitis of both eyes Instructions: Conjunctivitis (ED) Condition: Fair Pt referred to PMD for follow-up: Yes Additional Instructions: use eye drops to both eyes tree times at day. Follow up with your PCP in 3 days Allergies/Adverse Reactions: Allergies butorphanol tartrate [From Stadol] Adverse Reaction (Verified 01/03/17 20:34) codeine Adverse Reaction (Verified 01/03/17 20:34) prochlorperazine edisylate [From Compazine] Adverse Reaction (Verified 01/03/17 20:34) prochlorperazine maleate [From Compazine] Adverse Reaction (Verified 01/03/17 20 :34) Home Medications: Ambulatory Orders Ropinirole HCl [Requip] 2 mg PO BEDTIME 02/07/14 Topiramate [Topamax] 75 mg PO BID 02/07/14 Duloxetine HCl [Cymbalta] 90 mg PO DAILY 02/25/16 Gabapentin 300 mg PO TID 02/25/16 Levothyroxine Sodium [Synthroid] 50 mcg PO DAILY 02/25/16 Estradiol [Estrace] 42.5 gm VG 2 TIMES PER WEEK 09/09/16 Lorazepam 0.5 mg PO DIRECTED PRN 09/09/16 Oxycodone-Acetaminophe 7.5-325 [Percocet 7.5-325] 1 tab PO Q6H PRN #25 tablet Simvastatin 20 mg PO DAILY 09/09/16 Diclofenac Sodium [Voltaren 1% Gel] 4 gm TP QID 01/04/17 Diphenhydramine HCl [Benadryl] 25 mg PO Q8H PRN 01/04/17 Omeprazole [Prilosec] 20 mg PO QDAC 01/04/17 Promethazine HCl 25 mg PO DAILY PRN 01/04/17 Sumatriptan Succinate [Imitrex] 6 mg SQ DAILY PRN 01/04/17 Disposition Discussed With: Patient, Family
[2017-01-03] MEDS: EYE-STREAM OP STA (21:18)
[2017-01-03] MEDS: GENTAK OPTH SOL OP STA (21:42)
== END 2017-01-03 21:42 | disposition home or self-care (01) ==
LOC: ED 20:27
DX: H10.213 Acute toxic conjunctivitis, bilateral (principal)
CPT/HCPCS: 99282

== ENCOUNTER 2017-02-04 16:13 | Emergency (ER) ==
[2017-02-04 16:38] VITALS: BP 165/83; TEMP 97.8; BMI 27.1
== END 2017-02-04 16:36 | disposition left against medical advice (07) ==
LOC: ED 16:13
DX: T50.901A Poisoning by unspecified drugs, medicaments and biological substances, accidental (unintentional), initial encounter (principal); R52 Pain, unspecified; R11.0 Nausea; R47.02 Dysphasia

== ENCOUNTER 2017-05-21 18:39 | Emergency (ER) ==
[2017-05-21 18:48] VITALS: BP 149/82; TEMP 98.5; BMI 26.1
[2017-05-21] MEDS ORDERED: MOTRIN PO STA (19:29)
[2017-05-21] MEDS ORDERED: KEFLEX PO STA (19:29)
--- NOTE | 2017-05-21 20:11 | ED.PDOC ---
General ED Provider: Dr. JOSE MORSE Chief Complaint: Wound Check Stated Complaint: Patient is a 56 year old female who was admitted to [facility] on may 15 with iv started to rt forearm. It was used on may 17 for dobutamine stress test and it was flushed later on afternoon shift. Patiet states it was very painful at that time. Now the area is reddened,warm and tender to touch. Time Seen by Physician: 19:25 Mode of Arrival: Walk-In Information Source: Patient Exam Limitations: No limitations Primary Care Provider: SMITHA TRINH Nursing and Triage Documentation Reviewed and Agree: Yes Review of Systems - Review Of Systems Constitutional: Reports: No symptoms Eyes: Reports: No symptoms Ears, Nose, Mouth, Throat: Reports: No symptoms Respiratory: Reports: No symptoms Cardiac: Reports: No symptoms GI: Reports: No symptoms : Reports: No symptoms Musculoskeletal: Reports: No symptoms Skin: Reports: Rash Neurological: Reports: No symptoms Endocrine: Reports: No symptoms Hematologic/Lymphatic: Reports: No symptoms All Other Systems: Reviewed and Negative Past Medical History - Past Medical History Previously Healthy: Yes Endocrine: Reports: Hypothyroid, Dyslipidemia Cardiovascular: Reports: None Respiratory: Reports: None Hematological: Reports: None Gastrointestinal: Reports: GERD Genitourinary: Reports: None Neuro/Psych: Reports: Migraine, Other Musculoskeletal: Reports: None Cancer: Reports: None Last Menstrual Period: hysterectomy Other Pertinent Past Medical History: Fibromyalgia - Surgical History General Surgical History: Reports: Hysterectomy (1994), , Orthopedic ( left forearm surgery, right elbow surgery ), Back Surgery (L5 S1 disk removal. ) - Family History Family History: Reports: Unknown - Social History Smoking Status: Former smoker Hx Substance Use: No Alcohol Screening: None Physical Exam - Physical Exam Appearance: Well-appearing, No pain distress, Well-nourished Eyes: HAZEL, EOMI, Conjunctiva clear ENT: Ears normal, Nose normal, Oropharynx normal Respiratory: Airway patent, Breath sounds clear, Breath sounds equal, Respirations nonlabored Cardiovascular: RRR, Pulses normal, No rub, No murmur GI/: Soft, Nontender, No masses, Bowel sounds normal, No Organomegaly Musculoskeletal: Normal strength, ROM intact, No edema, No calf tenderness Skin: Warm, Dry, Normal color Neurological: Sensation intact, Motor intact, Reflexes intact, Cranial nerves intact, Alert, Oriented Psychiatric: Affect appropriate, Mood appropriate Critical Care Note - Critical Care Note Total Time (mins): 0 Course - Course Orders, Labs, Meds: Orders Category Date Time Status Cephalexin [Keflex] MEDS 05/21/17 19:29 Discontinued 500 mg PO ONCE STA Ibuprofen [Motrin] MEDS 05/21/17 19:29 Discontinued 800 mg PO ONCE STA Medications Discontinued Medications Generic Name Dose Route Start Last Admin Trade Name Freq PRN Reason Stop Dose Admin Cephalexin 500 mg 05/21/17 19:29 05/21/17 19:36 Keflex PO 05/21/17 19:30 500 mg ONCE STA Administration Ibuprofen 800 mg 05/21/17 19:29 05/21/17 19:36 Motrin PO 05/21/17 19:30 800 mg ONCE STA Administration Vital Signs: Temp Pulse Resp BP Pulse Ox 05/21/17 18:40 98.5 F 103 H 20 149/82 H 95 Departure - Departure Time of Disposition: 20:08 Disposition: HOME SELF-CARE Discharge Problem: Thrombophlebitis following injection or infusion Qualifiers: Encounter type: initial encounter Qualified Code(s): T81.72XA - Complication of vein following a procedure, not elsewhere classified, initial encounter Instructions: Superficial Thrombophlebitis (ED) Condition: Good Pt referred to PMD for follow-up: Yes Additional Instructions: Take medications as prescribed. Follow up with PCP use cold compress for relief of symptoms Prescriptions: Cephalexin [Keflex] 500 mg PO Q8HR #30 capsule Ibuprofen [Motrin] 600 mg PO Q6H PRN #30 tablet PRN Reason: Analgesia Allergies/Adverse Reactions: Allergies butorphanol tartrate [From Stadol] Adverse Reaction (Verified 05/21/17 18:49) codeine Adverse Reaction (Verified 05/21/17 18:49) prochlorperazine edisylate [From Compazine] Adverse Reaction (Verified 05/21/17 18:49) prochlorperazine maleate [From Compazine] Adverse Reaction (Verified 05/21/17 18 :49) Home Medications: Ambulatory Orders Ropinirole HCl [Requip] 2 mg PO BEDTIME 02/07/14 Topiramate [Topamax] 75 mg PO BID 02/07/14 Duloxetine HCl [Cymbalta] 90 mg PO DAILY 02/25/16 Gabapentin 400 mg PO QID 02/25/16 Levothyroxine Sodium [Synthroid] 50 mcg PO DAILY 02/25/16 Estradiol [Estrace] 42.5 gm VG 2 TIMES PER WEEK 09/09/16 Lorazepam 0.5 mg PO DIRECTED PRN 09/09/16 Oxycodone-Acetaminophe 7.5-325 [Percocet 7.5-325] 1 tab PO Q6H PRN #25 tablet Simvastatin 20 mg PO DAILY 09/09/16 Diclofenac Sodium [Voltaren 1% Gel] 4 gm TP QID 01/04/17 Diphenhydramine HCl [Benadryl] 25 mg PO Q8H PRN 01/04/17 Omeprazole [Prilosec] 20 mg PO QDAC 01/04/17 Promethazine HCl 25 mg PO DAILY PRN 01/04/17 Sumatriptan Succinate [Imitrex] 6 mg SQ DAILY PRN 01/04/17 Cephalexin [Keflex] 500 mg PO Q8HR #30 capsule 05/21/17 Ibuprofen [Motrin] 600 mg PO Q6H PRN #30 tablet 05/21/17 Disposition Discussed With: Patient, Family
== END 2017-05-21 20:20 | disposition home or self-care (01) ==
LOC: ED 18:39
DX: T81.72XA Complication of vein following a procedure, not elsewhere classified, initial encounter (principal)
CPT/HCPCS: 99282

== ENCOUNTER 2018-01-03 22:18 | Emergency (ER) ==
[2018-01-03 22:26] VITALS: BP 142/91; TEMP 97.9; BMI 26.6
--- NOTE | 2018-01-03 22:44 | ED.PDOC ---
General ED Provider: Dr. SMITHA TRINH-ER Chief Complaint: Finger Laceration Stated Complaint: i cut my thumb Time Seen by Physician: 22:42 Mode of Arrival: Walk-In Information Source: Patient Exam Limitations: No limitations Primary Care Provider: SMITHA TRINH Nursing and Triage Documentation Reviewed and Agree: Yes Reviewed sepsis parameters & appropriate labs ordered?: Yes System Inflammatory Response Syndrome: Not Applicable Sepsis Protocol: For patient's 13 years and over: Temp is 96.8 and below OR 101 and greater Pulse >90 BPM Resp >20/minute Acutely Altered Mental Status Are patient's symptoms suggestive of a new infection, such as: -Pneumonia -Skin, Soft Tissue -Endocarditis -UTI -Bone, Joint Infection -Implantable Device -Acute Abdominal Infection -Wound Infection -Meningitis -Blood Stream Catheter Infection -Unknown Skin Complaint Exam - Laceration/Abrasion/Hand Complaint/Exam Location of Injury: Right, Digit #1 Mechanism of Injury: Laceration Onset/Duration: today Symptoms Are: Still present Initial Severity: Mild Current Severity: None Aggravating: None Alleviating: None Associated Signs and Symptoms: Denies: Fever, Chills, Erythema, Numbness, Tingling Differential Diagnoses: Laceration Review of Systems - Review Of Systems Constitutional: Reports: No symptoms Eyes: Reports: No symptoms Ears, Nose, Mouth, Throat: Reports: No symptoms Respiratory: Reports: No symptoms Cardiac: Reports: No symptoms GI: Reports: No symptoms : Reports: No symptoms Musculoskeletal: Reports: No symptoms Skin: Reports: No symptoms Neurological: Reports: No symptoms Endocrine: Reports: No symptoms Hematologic/Lymphatic: Reports: No symptoms All Other Systems: Reviewed and Negative Past Medical History - Past Medical History Previously Healthy: Yes Endocrine: Reports: Hypothyroid, Dyslipidemia Cardiovascular: Reports: None Respiratory: Reports: None Hematological: Reports: None Gastrointestinal: Reports: GERD Genitourinary: Reports: None Neuro/Psych: Reports: Migraine, Other Musculoskeletal: Reports: None Cancer: Reports: None Last Menstrual Period: PT HAS HAD A HYSTERECTOMY Other Pertinent Past Medical History: Fibromyalgia - Surgical History General Surgical History: Reports: Hysterectomy (1994), , Orthopedic ( left forearm surgery, right elbow surgery ), Back Surgery (L5 S1 disk removal. ) - Family History Family History: Reports: Unknown - Social History Smoking Status: Former smoker Hx Substance Use: No Alcohol Screening: None - Immunizations Tetanus Shot up to Date: (UNKNOWN) Physical Exam - Physical Exam Appearance: Well-appearing Pain Distress: Mild Eyes: HAZEL ENT: Ears normal, Nose normal, Oropharynx normal Respiratory: Airway patent, Breath sounds clear, Breath sounds equal, Respirations nonlabored Cardiovascular: RRR GI/: Soft Musculoskeletal: Normal strength, ROM intact, No edema, No calf tenderness Skin: Warm, Dry, Normal color Neurological: Sensation intact, Motor intact, Reflexes intact, Cranial nerves intact, Alert, Oriented Psychiatric: Affect appropriate, Mood appropriate Procedures - Laceration/Wound Repair No standard instances Wound Description: Linear Wound Length (cm): 1cm Wound Explored: Clean Wound Irrigated: Yes Wound Prep: Hibiclens Wound Repaired With: Steri-strips, Dermabond Layer Closure?: No Critical Care Note - Critical Care Note Total Time (mins): 0 Course - Course Orders, Labs, Meds: Orders Category Date Time Status Wound care [ED WOUND CARE] .ONCE EMERGENCY 01/03/18 22:41 Active Tetanus and Diphtheria Tox/Pf [Tenivac] MEDS 01/03/18 22:45 Discontinued 0.5 ml IM .ONCE ONE Medications Discontinued Medications Generic Name Dose Route Start Last Admin Trade Name Freq PRN Reason Stop Dose Admin Tetanus/Diphtheria Toxoids Adsorbed 0.5 ml 01/03/18 22:45 01/03/18 22:53 Tenivac IM 01/03/18 22:46 0.5 ml .ONCE ONE Administration Vital Signs: Temp Pulse Resp BP Pulse Ox 01/03/18 22:19 97.9 F 73 18 142/91 H 96 Departure - Departure Time of Disposition: 22:44 Disposition: HOME SELF-CARE Discharge Problem: Laceration of finger Instructions: Diphtheria/Tetanus Vaccine (By injection), Laceration (ED) Condition: Good Pt referred to PMD for follow-up: Yes IPMP verified?: No Additional Instructions: keep clean and dry--return if any signs of infection Allergies/Adverse Reactions: Allergies butorphanol tartrate [From Stadol] Adverse Reaction (Verified 01/03/18 22:24) codeine Adverse Reaction (Verified 01/03/18 22:24) prochlorperazine edisylate [From Compazine] Adverse Reaction (Verified 01/03/18 22:24) prochlorperazine maleate [From Compazine] Adverse Reaction (Verified 01/03/18 22 :24) Home Medications: Ambulatory Orders Ropinirole HCl [Requip] 1 mg PO BEDTIME 02/07/14 Topiramate [Topamax] 75 mg PO BID 02/07/14 Duloxetine HCl [Cymbalta] 120 mg PO DAILY 02/25/16 Gabapentin 400 mg PO TID 02/25/16 Levothyroxine Sodium [Synthroid] 50 mcg PO DAILY 02/25/16 Estradiol [Estrace] 42.5 gm VG 2 TIMES PER WEEK 09/09/16 Lorazepam 0.5 mg PO BID PRN 09/09/16 Simvastatin 20 mg PO DAILY 09/09/16 Diphenhydramine HCl [Benadryl] 50 mg PO Q8H PRN 01/04/17 Omeprazole [Prilosec] 20 mg PO QDAC 01/04/17 Promethazine HCl 25 mg PO DAILY PRN 01/04/17 Sumatriptan Succinate [Imitrex] 6 mg SQ DAILY PRN 01/04/17 Ibuprofen [Motrin] 600 mg PO Q6H PRN #30 tablet 05/21/17 Albuterol Sulfate [Proair Hfa] 2 puff IH Q6H PRN 01/03/18 Ascorbic Acid [Vitamin C] 1,000 mg PO DAILY 01/03/18 Hydrocodone/Acetaminophen [Hydrocodon-Acetaminophen 5-325] 1 each PO DAILY PRN 01/03/18 Disposition Discussed With: Patient
[2018-01-03] MEDS ORDERED: TENIVAC IM ONE (22:45)
== END 2018-01-03 22:58 | disposition home or self-care (01) ==
LOC: ED 22:18
DX: S61.011A Laceration without foreign body of right thumb without damage to nail, initial encounter (principal); W45.8XXA Other foreign body or object entering through skin, initial encounter
CPT/HCPCS: 90471; 90714; 99283